=== PATIENT | female | born 1995 | race Caucasian/White ===

== ENCOUNTER → 2022-11-18 | Outpatient (CLI) | payer OTHER ==
--- NOTE | 2022-11-18 14:54 | CT ---
EXAMINATION TYPE: CT urogram wo/w con DATE OF EXAM: 11/18/2022 COMPARISON: None HISTORY: Gross hematuria, chronic infections CT DLP: [id number] mGycm Automated exposure control for dose reduction was used. Contrast: None Technique: Axial images 2 mm thick sections. Reconstructed images in coronal plane. Three-D reconstru cted images were obtained. Delayed images were obtained through the reconstructed images performed by the technologist who performed a separate computer. FINDINGS: Limited CT sections are obtained through the lung bases which are clear CT ABDOMEN: Liver and spleen are of normal density without discrete masses or cysts. The adrenal glan ds are normal. Pancreas unremarkable. Gallbladder is normal. Kidneys appear normal without masses cysts or hydronephrosis. No hydroureter is evident. Abdominal ao rta and inferior vena cava are normal. CT PELVIS: There is mild ileus within small bowel loops with fluid. Uterus appears normal. There is a large cyst on the left ovary measuring 6.2 x 3.5 cm. A smaller right ovarian cyst is present measuri ng 2.5 x 2.2 cm. Uterus is unremarkable. Urinary bladder has some contrast present. IMPRESSION: 1. NO SUSPICIOUS ABNORMALITY TO ACCOUNT FOR URINARY TRACT INFECTIONS. 2. BILATERAL OVARIAN CYSTS, LARGER ON THE LEFT..
== END | disposition home or self-care (01) ==
LOC: RADCTMAIN 08:56
PROVIDERS: ATTEND Urology
DX: N83.201 Unspecified ovarian cyst, right side (principal); N83.202 Unspecified ovarian cyst, left side; R31.0 Gross hematuria
CPT/HCPCS: 74178; 74400; Q9967